=== PATIENT | male | born 1980 | race American Indian/Alaskan Native ===

== ENCOUNTER 2018-07-22 07:17 | Emergency (ER) | payer BC ==
[2018-07-22 07:23] VITALS: BP 116/70
--- NOTE | 2018-07-22 07:58 | Emergency Department Report ---
Minor Respiratory - HPI Chief Complaint: Upper Respiratory Infection Stated Complaint: COLD/COUGH Time Seen by Provider: 07/22/18 07:53 Duration: 5 Days (over a week) Pain Location: Other (none) Minor Respiratory: Yes Rhinorrhea (nasal congestion), Yes Able to Tolerate Fluids, Yes Cough (dry cough), Yes Sick Contacts (patient states that his had same symptoms and was treated last week in ED), No Sore Throat, No Ear Pain , No Hemoptysis, No Chest Pain, No Shortness of Breath, No Fever Other History: Patient reports that he is having cough congestion and is using [id number]-[id number] medication with a of.He was sent from his employer to be 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 ED Review of Systems ROS: Stated complaint: COLD/COUGH Other details as noted in HPI Constitutional: denies: chills, fever Eyes: denies: eye pain, eye discharge, vision change ENT: congestion. denies: ear pain, throat pain Respiratory: cough. denies: shortness of breath, SOB with exertion, SOB at rest , stridor, wheezing Cardiovascular: denies: chest pain, palpitations, edema, syncope Endocrine: no symptoms reported Gastrointestinal: denies: abdominal pain, nausea, vomiting, diarrhea, constipation Musculoskeletal: denies: back pain, joint swelling, arthralgia, myalgia Skin: denies: rash, lesions Neurological: denies: headache, weakness, paresthesias, abnormal gait, vertigo ED Past Medical Hx - Past Medical History Previous Medical History?: No - Surgical History Past Surgical History?: No - Family History Family history: hypertension - Social History Smoking Status: Former Smoker Substance Use Type: None - Medications Home Medications: Home Medications Medication Instructions Recorded Confirmed Last Taken Type Ibuprofen [Motrin] 800 mg PO TID #30 tablet 11/30/13 Unknown Rx traMADol [Ultram 50 MG tab] 50 mg PO Q6HR PRN #20 tablet 11/30/13 Unknown Rx Azithromycin [Zithromax Z-RAJENDRA] 250 mg PO DAILY 5 Days #1 pkg 07/22/18 Unknown Rx Cetirizine HCl [ZyrTEC] 10 mg PO QDAY 21 Days #21 07/22/18 Unknown Rx tab.rapdis Fluticasone [Flonase] 1 spray NS QDAY 14 Days #1 bottle 07/22/18 Unknown Rx predniSONE [Deltasone] 50 mg PO QDAY 3 Days #3 tab 07/22/18 Unknown Rx Minor Respiratory Exam - Exam General: Vital signs noted. No distress. Alert and acting appropriately. This is a 37-year-old male well-nourished well-developed in no acute distress HEENT: Yes Moist Mucous Membranes, Yes Rhinorrhea (nasal congestion with erythema), No Pharyngeal Erythema, No Pharyngeal Exudates, No Conjuctival Injection, No Frontal Tenderness, No Maxillary Tenderness Ear: Neither TM Bulge (congested without erythema), Neither TM Erythema, Neither EAC Pain, Neither EAC Discharge Neck: Yes Supple (full range of motion), No Adenopathy Lungs: Yes Good Air Exchange (CTAB in all quadrants), Yes Cough (dry cough), No Wheezes, No Ronchi, No Stridor, No Labored Respirations, No Retractions, No Use of Accessory Muscles, No Other Abnormal Lung Sounds Heart: Yes Regular (S1, S2. Regular rate and rhythm), No Murmur Abdomen: No Tenderness, No Peritoneal Signs, No Normal Bowel Sounds Skin: No Rash, No Edema Neurologic: Alert and oriented, no deficits. Alert and oriented 3, normal gait and GCS of 15 Musculoskeletal: Unremarkable. No cce. + 2 pulses in all extremities, no neurovascular compromise ED Course Vital Signs 07/22/18 07:21 Temperature 98.8 F Pulse Rate 77 Respiratory 18 Rate Blood Pressure 116/70 O2 Sat by Pulse 99 Oximetry - Reevaluation(s) Reevaluation #1: 07/22/18 08:03 Patient had uneventful ED stay ED Medical Decision Making - Medical Decision Making This is a 37-year-old male well-nourished well-developed in no acute distress. He is here because he said he is having cold symptoms that he thinks he got from his and nkoj-bmp-nideltk medication is not working. I saw and examined patient and he was found to have normal examination except he has bilateral TM congested without erythema, nasal mucosa congested with erythema and clear drainage. He has a dry cough for a said he is having drainage of the back of his throat. His lung sounds are clear with normal work of breathing. Throat is normal. I discussed the patient is diagnosis and treatment plan and I told him that he will need to stay home for a couple days and increase his water intake. Patient voiced understanding and is discharged diagnosis and treatment plan and was discharged home in stable condition, vital signs are stable is a febrile and given prescription for Z-Rajendra, Flonase, Zyrtec and prednisone. Critical care attestation.: If time is entered above; I have spent that time in minutes in the direct care of this critically ill patient, excluding procedure time. ED Disposition Clinical Impression: Upper respiratory infection with cough and congestion Disposition: DC- TO HOME OR SELFCARE Is pt being admited?: No Does the pt Need Aspirin: No Condition: Stable Instructions: Upper Respiratory Infection (ED), Acute Cough (ED) Additional Instructions: Take medication as prescribed follow up with PCP and if he do not have a primary care physician follow-up at [facility] in 2-3 days Increase her fluid intake If your symptoms worsens, return to the emergency room Referrals: [facility] [Outside] - 2-3 Days KEL CORONA JR, MD [Staff Physician] - 2-3 Days Forms: Work/School Release Form(ED)
== END 2018-07-22 08:18 | disposition home or self-care (01) ==
LOC: ED 07:17
DX: J06.9 Acute upper respiratory infection, unspecified (principal); Z87.891 Personal history of nicotine dependence
CPT/HCPCS: 99282

== ENCOUNTER 2019-06-05 07:31 | Emergency (ER) | payer OTHER, BC ==
[2019-06-05 07:41] VITALS: BP 119/70
[2019-06-05] MEDS ORDERED: IBUPROFEN PO ONE (08:12)
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
== END 2019-06-05 08:57 | disposition home or self-care (01) ==
LOC: ED 07:31
DX: S16.1XXA Strain of muscle, fascia and tendon at neck level, initial encounter (principal); Z79.899 Other long term (current) drug therapy; V49.49XA Driver injured in collision with other motor vehicles in traffic accident, initial encounter; Y93.89 Activity, other specified; Y92.410 Unspecified street and highway as the place of occurrence of the external cause; Y99.8 Other external cause status
CPT/HCPCS: 72040